=== PATIENT | male | born 1960 | race Caucasian/White ===

== ENCOUNTER 2017-04-03 15:42 | Emergency (ER) | payer OTHER ==
[~2017-04-03] VITALS: Ht 190.5 cm; Wt 108.0 kg
[2017-04-03 15:46] VITALS: TEMP 36.7; Ht 190.5 cm; Wt 108.0 kg
[2017-04-03] MEDS ORDERED: XYLOCAINE 1%/SOD BICARB 20 ML VIAL INFIL ONE (15:55)
--- NOTE | 2017-04-03 16:52 | EMERGENCY ROOM VISIT NOTE ---
ED Visit Note First contact with patient: 15:50 CHIEF COMPLAINT: Left elbow laceration HISTORY OF PRESENT ILLNESS: This 56-year-old male presents the ER with chief complaint of a laceration to his left elbow. The patient states that while he was at work walking in the [place] she tripped and tumbled and struck his left elbow on some rocks. The patient denies any head or back injury. The patient denies any loss of consciousness. The patient's tetanus is up-to-date. The patient states he is able to move his elbow without difficulty. The patient denies any other injuries. The patient is right-hand dominant. REVIEW OF SYSTEMS: 6 system review was performed and was negative unless stated otherwise in history of present illness. PMH: The patient is healthy; back surgery SOCIAL HISTORY: Patient lives with his . The patient denies any tobacco or alcohol use. PHYSICAL EXAM: Vital Signs: Were reviewed Reviewed Nurse's notes. GENERAL: 56- year-old white male appears in no acute distress. MENTAL Status: Alert and oriented 3. LEFT ELBOW: No gross bony deformity noted. No erythema or edema noted. There is a 2 cm laceration just distal to the olecranon process with mild active bleeding. The edges are gaping apart, especially with flexion of the elbow. There is no foreign material in the wound and it looks clean. No deep structures such as tendons or nerves are seen in the base of the wound. The patient has full range of motion of the elbow without difficulty. EMERGENCY DEPARTMENT COURSE: The patient was evaluated. Wound Repair: Was performed by the PA student under my direct supervision. Complexity: Basic. Verbal consent was obtained after the risks and benefits were explained, including but not limited to bleeding, scarring, infection, pain, and bone/joint /nerve damage. The skin was prepped with betadine and a sterile field set. The wound was anesthetized with 2.2 ml of 1% buffered lidocaine. With direct pressure the bleeding subsided. Copious irrigation was performed using sterile saline. The wound was explored for foreign bodies and none found. Debridement was not performed. The wound edges were approximated using 5-0 Ethilon with 4 simple interrupted sutures. Hemostasis and excellent approximation was achieved. Antibacterial ointment and a sterile dressing applied. Detailed wound care instructions and signs and symptoms of infection reviewed with the patient. No complications and the patient tolerated the procedure well. DIAGNOSIS: 2 cm left Elbow laceration DISCHARGE INSTRUCTIONS & TREATMENT: Keep wound clean and dry. No water on the area for 12-24 hrs then no soaking until sutures removed. Do not allow any crusting or dried blood to accumulate on sutures. If this occurs, use a 1:1 solution of hydrogen peroxide/water on a Q-tip to clean the wound. Use an antibiotic ointment for 3-4 days, then let wound dry. Suture removal in 10 days. Follow up sooner for any signs of infection (increasing redness, swelling , drainage). Ice and elevate for swelling and pain. Tylenol 650 mg every 6 hrs for pain. Current/Historical Medications No Active Prescriptions or Reported Meds Allergies Coded Allergies: No Known Allergies (Unverified , 04/03/17) Vital Signs Date Time Temp Pulse Resp B/P (MAP) Pulse Ox O2 Delivery O2 Flow Rate FiO2 04/03/17 15:46 36.7 100 20 146/83 97 Room Air Departure Information Prescriptions No Active Prescriptions or Reported Meds Referrals No Doctor, Assigned (PCP) Patient Instructions [facility]
[2017-04-03 17:02] VITALS: BP 131/82; PULSE 80; O2SAT 98
== END 2017-04-03 17:00 | disposition home or self-care (01) ==
LOC: C.EDB 15:45 → C.EDD 17:00
DX: S51.012A Laceration without foreign body of left elbow, initial encounter (principal); W01.198A Fall on same level from slipping, tripping and stumbling with subsequent striking against other object, initial encounter; Y99.0 Civilian activity done for income or pay; Y92.821 Forest as the place of occurrence of the external cause